=== PATIENT | female | born 1985 | race Caucasian/White ===

== ENCOUNTER 2022-10-26 13:09 | Outpatient (AMB) | payer OTHER, SELFPAY ==
--- NOTE | 2022-10-26 13:12 | A.OFFVIS_ITS ---
Intake VS Expanded 10/26/22 13:19 Height 5 ft 4 in Weight 121 lb 9.6 oz BMI 20.9 BP 120/73 Blood Pressure Location Rt brachial Blood Pressure Position Sitting Pulse 91 Pulse Source Pulse Oximeter Temp 98.8 F Temperature Source Temporal Artery Scan Pulse Oximetry 98 Oxygen Delivery Method Room Air Body Fat 33.0 Body Fat Percentage 27.2 Free Fat Mass 88.4 Muscle Mass 84.0 Visceral Mass 3.0 Water Mass 63.4 BMR 1,218 Intake Visit Reasons: (OV) Panniculectomy BMI 21.6 Allergies codeine [CODEINE] Allergy (Unknown, Verified 10/26/22 13:15) RASH hydrocodone [From VICODIN] Allergy (Unknown, Verified 10/26/22 13:15) RASH lithium [LITHIUM] Allergy (Unknown, Verified 10/26/22 13:15) UNK Penicillins [PENICILLINS] Allergy (Unknown, Verified 10/26/22 13:15) RASH Sulfa (Sulfonamide Antibiotics) [SULFA (SULFONAMIDE ANTIBIOTICS)] Allergy (Unknown, Verified 10/26/22 13:15) RASH HPI HPI Comments History of Present Illness Details 36 year old female presents to the office for evaluation for possible panniculectomy due to excess skin. She underwent gastric surgery, laparoscopic sleeve gastrectomy, on []. Initial weight was [] pounds. She has lost a total of [] pounds and as a result has excess skin. She has applied [], several times over the last 3 months with improvement and recurrence of her dermatitis. The excess skin has interfered with her ADL activities and has caused a functional deficit due to severe physical deformity. She reports[]. The surgery is expected to restore and improve the functional deficit. [facility] Surgical History (Updated 10/26/22 @ 13:19 by Ana Maravilla CMA) History of removal of laparoscopic gastric banding device Hx of hysterectomy Hx of laparoscopic gastric banding Hx of laparoscopic partial gastrectomy Social History (Updated 10/26/22 @ 13:19 by Ana Maravilla CMA) Alcohol intake: current Alcohol intake frequency: holidays/special occasions only Cigarettes Per Day: 7 Coding Diagnoses
[2022-10-26 13:19] VITALS: BP 120/73; PULSE 91; TEMP 37.1; O2SAT 98; BMI 20.9
[2022-10-26 13:40] VITALS: BMI 20.9
--- NOTE | 2022-10-26 13:40 | A.OFFVIS_ITS ---
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 Wood Fuel Pelletizer: Wood Fuel Pelletizer Present Allergies codeine [CODEINE] Allergy (Unknown, Verified 10/26/22 13:15) RASH hydrocodone [From VICODIN] Allergy (Unknown, Verified 10/26/22 13:15) RASH lithium [LITHIUM] Allergy (Unknown, Verified 10/26/22 13:15) UNK Penicillins [PENICILLINS] Allergy (Unknown, Verified 10/26/22 13:15) RASH Sulfa (Sulfonamide Antibiotics) [SULFA (SULFONAMIDE ANTIBIOTICS)] Allergy (Unknown, Verified 10/26/22 13:15) RASH Medication List - Last Reconciled 10/26/22 by EDEN Kenyon [klonopin PO TID] HPI HPI Comments History of Present Illness Details 36 year old female, presenting for possible panniculectomy. She states that she had a lap band placed by Dr. Curry in 2014. At that time her weight was 330 lb. She had the lap band removed in 2018 and subsequent laparoscopic sleeve gastrectomy in 2019. She states that her weight in 2019 prior to the sleeve procedure was 345 lb. She states that she has maintained her current weight of 121 lb over the last year. She states that she has excess skin under her pannus. She additionally notes odor coming from the umbilicus for which she has been treated intermittently by her primary care physician with nystatin. She denies any confluent rashes to her skin underneath the pannus and wishes to just have the excess skin removed. She states that she has intermittently developed sores which she describes as a boil, underneath the pannus and this has been treated intermittently with antibiotics or nothing at all. She reports a lesion to her medial right leg currently that is very similar to the lesions that she would get under her pannus. She has been applying powders and taking several showers to keep the skin clean and dry under her pannus. [facility] Surgical History History of removal of laparoscopic gastric banding device Hx of hysterectomy Hx of laparoscopic gastric banding Hx of laparoscopic partial gastrectomy Social History Alcohol intake: current Alcohol intake frequency: holidays/special occasions only Cigarettes Per Day: 7 Physical Exam Vital Signs: Last Vital Signs Temp 98.8 F 10/26/22 13:19 Pulse 91 10/26/22 13:19 BP 120/73 10/26/22 13:19 Pulse Ox 98 10/26/22 13:19 Oxygen Delivery Method Room Air 10/26/22 13:19 BMI result Body Mass Index 20.9 Const General: anxious and other (Very jittery) Resp Effort & Inspection: normal respiratory effort GI Inspection: Yes normal to inspection and Yes Abdominal panniculus present Skin Other: 0.5 cm healing circular infection to the medial right leg. Grade 2 pannus without any rash to the skin. Assessment & Plan Assessment & Plan (1) Excess skin: Code(s): L98.7 - Excessive and redundant skin and subcutaneous tissue Plan: Discussed the importance of maintaining a healthy diet. She states that she eats 5-6 small meals per day including protein and fresh vegetables. She does smoke 6-7 cigarettes per day and was encouraged to quit. She will continue with as needed nystatin to her umbilicus. She will contact the office with any rashes that she develops underneath the pannus. We discussed the criteria for medical necessity for panniculectomy including recurrent dermatitis, impact to activities of daily living, pain. She has been congratulated on her greater than 200 lb weight loss, per her report, and she will follow-up in the office as needed. Coding Level of Care Code New Pt Level 3 (16516) Diagnoses Excess skin L98.7
== END 2022-10-26 13:48 | disposition home or self-care (01) ==
PROVIDERS: PCP Family Medicine; Visit Provider Physician Assistant Surgical
DX: L98.7 Excessive and redundant skin and subcutaneous tissue (principal)
CPT/HCPCS: 99203

== ENCOUNTER → 2022-10-26 13:09 | Outpatient (BNVA) | payer MEDICAID, SELFPAY | PROVIDERS: PCP Family Medicine; Visit Provider Physician Assistant Surgical ==

== ENCOUNTER 2022-12-06 15:55 | Emergency (ER) | payer OTHER, SELFPAY ==
[2022-12-06 16:11] VITALS: BP 119/57; BP 120/71; PULSE 102; PULSE 98; RESP 18; TEMP 37.2; O2SAT 96; O2SAT 97; BMI 21.8
--- NOTE | 2022-12-06 16:56 | ED.GENADULT ---
HPI - General Adult General Chief complaint: Psychiatric Symptoms Stated complaint: BEHAVIORAL ISSUES SINCE MED CHANGE Time Seen by Provider: 12/06/22 16:45 Source: patient Mode of arrival: ambulatory Limitations: other (poor historian ) History of Present Illness HPI narrative: 37-year-old female history of OCD, depression, anxiety, opiate use disorder presents requesting med adjustment she does not think her Suboxone dose is normal. EMS reports that her family reporting behavioral outburst and problems, patient is standing in from the faucet with running water for hours and crawling on the floor bizarre presentations. Patient denies SI and HI. No hallucinations. No medical complaints. Reports last used heroin a week ago and last drink alcohol week ago. Related Data Home Medications Medication Instructions Recorded Confirmed klonopin PO TID 10/26/22 10/26/22 Allergies Allergy/AdvReac Type Severity Reaction Status Date / Time codeine [CODEINE] Allergy Unknown RASH Verified 10/26/22 13:15 hydrocodone [From VICODIN] Allergy Unknown RASH Verified 10/26/22 13:15 lithium [LITHIUM] Allergy Unknown UNK Verified 10/26/22 13:15 Penicillins [PENICILLINS] Allergy Unknown RASH Verified 10/26/22 13:15 Sulfa (Sulfonamide Allergy Unknown RASH Verified 10/26/22 13:15 Antibiotics) [SULFA (SULFONAMIDE ANTIBIOTICS)] Review of Systems Review of Systems: Constitutional : No Weight loss, No Fever, No Chills, No Fatigue, No Malaise ENT/Mouth : No sore throat, No Rhinorrhea Eyes: No Eye Pain, No Swelling, No Redness Cardiovascular : No Chest Pain, No SOB, No Dyspnea on Exertion, No Orthopnea, No Edema, No Palpitations Respiratory : No Cough, No Sputum, No Wheezing Gastrointestinal : No Nausea, No Vomiting, No Diarrhea, No Constipation, No abdominal Pain, No Hematochezia, No Melena Genitourinary : No Dysuria, No Urinary Frequency, No Hematuria, Musculoskeletal : No joint pain, No Myalgias, No Joint Swelling Skin : No Skin Lesions, No rash Neuro : No Weakness, No Numbness, No Dizziness, No Headache Psych : No Anxiety/Panic, No Depression All other systems reviewed and are negative Yes all other systems are reviewed and are negative PMFSH Past Medical History Surgical History History of removal of laparoscopic gastric banding device Hx of hysterectomy Hx of laparoscopic gastric banding Hx of laparoscopic partial gastrectomy Social History Social History Alcohol intake: current Alcohol intake frequency: holidays/special occasions only Cigarettes Per Day: 7 Smoked in Last 30 Days: Yes Use of substances other than those prescribed or required for medical reasons: Yes Advance Directives: No Advance Directives Information Provided: Yes Physical Exam ED Vital Signs: Vital Signs - 24 hr 12/06/22 16:11 Temperature 98.9 F Pulse Rate 98 Respiratory Rate 18 Blood Pressure 119/57 L Pulse Oximetry 96 Oxygen Delivery Method Room Air BMI result Body Mass Index 21.8 Vital signs stable Appearance: Alert.? Oriented X3.? No acute distress.? Head: Normocephalic, atraumatic, no step-offs or deformities Eyes: Pupils equal, round and reactive to light.? Neck: Normal inspection.? Neck supple.? CVS: Normal heart rate and rhythm.? Pulses normal.? Respiratory: No respiratory distress.? Breath sounds normal.? Abdomen: Soft and nontender.? Skin: Skin warm and dry.? Normal skin color.? Normal skin turgor.? Extremities: No lower extremity edema.? No calf ttp. 5/5 strength to bilateral upper and lower extremities Neuro: Oriented X 3.? No motor deficit.? No sensory deficit. CN 2-12 intact Course Reevaluation(s) Reevaluation #1: CBC with leukocytosis . Patient without medical complaints this could be reactive however urine pending. Chemistry with no acute findings requiring intervention. UA without infection will not treat for UTI. No URI symptoms no indication for chest x-ray. Urine toxicology positive for benzodiazepines, cocaine, salicylates acetaminophen and ethanol negative. At this time patient will be placed in observation to allow more time to be evaluated by behavioral health team. At time observation was started patient comp operative no acute distress will continue to monitor Time: 19:12 Reevaluation #2: Patient would like to go home. Her urine is positive for cocaine and benzodiazepines. She has a prescription for Klonopin. She is not suicidal or homicidal. She has been calm, cooperative and appropriate while here. She would like to go home and follow-up with her Suboxone Clinic tomorrow. At this time she is stable for discharge home with outpatient follow-up. Return precautions were discussed. Time: 21:33 Medical Decision Making Medical Decision Making [facility] Narrative: 37-year-old female presents requesting med adjustment on psych meds and Suboxone. Physical exam benign. Likely polysubstance abuse. No SI or HI. Unlikely metabolic derangements. Plan medical clearance evaluation by behavioral health team Differential Diagnosis Differential Diagnoses: The differential diagnosis associated with the presentation includes Likely polysubstance abuse. No SI or HI. Unlikely metabolic derangements. Admission/Observation Consideration of admission/observation: Escalation of care including admission/observation considered Unlikely Lab Data [facility] Lab Attestation statement: I reviewed the patient's lab results. 12/06/22 17:53 12/06/22 17:53 Labs: Lab Results 12/06/22 12/06/22 Range/Units 17:53 17:54 WBC 14.6 H (4.8-10.8) X10*3/uL RBC 4.13 L (4.20-5.50) X10*6/uL Hgb 10.9 L (12.0-16.0) g/dl Hct 33.1 L (37.0-47.0) % MCV 80.1 (80.0-98.0) fL MCH 26.4 L (27.0-33.0) pg MCHC 32.9 (31.0-35.0) g/dl RDW 17.0 H (11.0-16.0) % Plt Count 256 (160-400) X10*3/uL MPV 9.4 (9.4-12.3) fL Immature Gran % (Auto) 0.5 H (0.0-0.4) % Neut % (Auto) 90.2 H (45-73) % Lymph % (Auto) 4.9 L (20-40) % [place] % (Auto) 4.1 (2-11) % Eos % (Auto) 0.0 (0-4) % Baso % (Auto) 0.3 (0-2) % Lymph # (Auto) 0.7 L (1.2-4.9) X10*3/uL [place] # (Auto) 0.6 (0.1-1.2) X10*3/uL Eos # (Auto) 0.0 (0.0-0.4) X10*3/uL Baso # (Auto) 0.0 (0.0-0.2) X10*3/uL Abs Immat Gran (auto) 0.07 H (0.00-0.03) X10*3/uL Absolute Neuts (auto) 13.1 H (2.0-8.3) x10*3/uL Absolute Nucleated RBC 0.000 (0.0-0.012) X10*3/uL Nucleated RBC % (auto) 0.0 (0.0-0.2) /100WBC Smear Tech's Comments VERIFIED Sodium 134 L (135-145) mmol/L Potassium 3.5 (3.3-5.1) mmol/L Chloride 107 (96-108) mmol/L Carbon Dioxide 20 L (22-29) mmol/L Anion Gap 11 L (12-20) BUN 13 (9-16) mg/dL Creatinine 0.73 (0.5-1.4) mg/dL Estim Creat Clear Calc 92.0 Estimated GFR > 60 Random Glucose 84 (60-115) mg/dL Calcium 8.7 (8.4-10.2) mg/dL Magnesium 2.0 (1.6-2.6) mg/dL Total Bilirubin 0.3 (0.0-1.0) mg/dL AST 24 (5-31) U/L ALT 17 (0-31) U/L Alkaline Phosphatase 146 H (39-117) U/L Total Protein 7.4 (6.5-8.0) g/dL Albumin 3.3 L (3.5-5.0) g/dL Urine Color Dark Yellow Urine Appearance Clear Urine pH 6.5 (5.0-9.0) Ur Specific [place] >= 1.030 H (1.005-1.025) Urine Protein 30 (1+) H (Neg-Trace) mg/dL Urine Glucose (UA) Negative (Negative) mg/dL Urine Ketones 15 (Negative) mg/dL Urine Blood Negative (Negative) Urine Nitrite Negative (Negative) Ur Leukocyte Esterase Trace H (Negative) Urine RBC 0-2 (0-2) /HPF Urine WBC 0-5 (0-5) /HPF Ur Squamous Epith Cells 6-10 (0-2) /HPF Urine Bacteria Trace (None Seen) Hyaline Casts 0-2 (0-2) /LPF Salicylates < 5.0 L (15-30) mg/dL Urine Opiates Screen Not Detected (Not Detect) Urine Fentanyl Screen Not Detected (Not Detect) Acetaminophen < 17 (<30) mcg/mL Ur Barbiturates Screen Not Detected (Not Detect) Ur Phencyclidine Scrn Not Detected (Not Detect) Ur Amphetamines Screen Not Detected (Not Detect) U Benzodiazepines Scrn POSITIVE H (Not Detect) Urine Cocaine Screen POSITIVE H (Not Detect) U Marijuana (THC) Screen Not Detected (Not Detect) Ethyl Alcohol < 10 mg/dL COVID-19 (VAHID) Negative (Negative) COVID-19 Clin Com See Note Social Determinants Patient?s care significantly limited by Social Determinants of Health including: Other Social Determinant of Health Critical Care Time Critical Care Time Critical Care Time: No Discharge Plan Discharge Clinical Impression: Polysubstance abuse Patient Disposition: Home, Self-Care Instructions: Polysubstance Abuse (ED) Additional Instructions: Do not use illicit drugs. Follow-up with your Suboxone Clinic tomorrow. Recommend following up with a therapist and psychiatrist for further evaluation and treatment. Follow-up with primary care doctor. If you develop new or worsening symptoms call 911 or come back to the ER for further evaluation. Prescriptions: No Action klonopin 1 mg PO TID Interventions: [place]-Suicide Risk Severity Scale Last Done: 12/06/22 16:17
--- NOTE | 2022-12-06 17:57 | PC.NURSE ---
pt aox4, with no complaints. was sent in at request of father who thinks that since starting suboxone at the beginning of nov, that she has been acting differently and that there is a behavioral concern. pt denies this and reports that they keep to themselves pt aslo has appt tomorrow with Doc who prescribes suboxone, further wondering why she is here now. behavior non-concerning at this time, calm and cooperative. pt denies SI/HI. not changed over to hosp scrubs at this time bc no SI. labs done, will ctm
[2022-12-06 18:08] LABS: Appearance Urine Clear; Color Urine Dark Yellow; Glucose Urine UA Negative (Negative); Leukocyte Esterase Urine Trace (Negative); Nitrite Urine Negative (Negative); PH 6.5 (5.0-9.0); Specific Gravity - Urine >= 1.030 (1.005-1.025); UMIC TRIGGER UACC YES; Urine Blood Negative (Negative); Urine Ketones 15 mg/dL (Negative); Urine Protein 30 (1+) mg/dL (Neg-Trace)
[2022-12-06 18:13] LABS: Amphetamine Screen Urine Not Detected (Not Detect); Barbiturates, Urine Not Detected (Not Detect); Benzodiazepines Screen Urine POSITIVE (Not Detect); Cannabinoid Screen Urine Not Detected (Not Detect); Cocaine Screen Urine POSITIVE (Not Detect); Fentanyl, urine Not Detected (Not Detect); Opiate Screen Urine Not Detected (Not Detect); Phencyclidine Screen Urine Not Detected (Not Detect)
[2022-12-06 18:15] LABS: COVID-19 Test Negative (Negative); IDNOW Serial# BCCEAD1C
[2022-12-06 18:23] LABS: Basophils Percent Auto 0.3 % (0-2); Hematocrit 33.1 % (37.0-47.0); Hemoglobin 10.9 g/dl (12.0-16.0); Imm Gran Abs Auto 0.07 X10*3/uL (0.00-0.03); Imm Gran Pct Auto 0.5 % (0.0-0.4); Lymphocytes Absolute Auto 0.7 X10*3/uL (1.2-4.9); Lymphocytes Percent Auto 4.9 % (20-40); MANUAL DIFF FLAG SCAN; Mean Corpuscular HGB Conc 32.9 g/dl (31.0-35.0); Mean Corpuscular Hemoglobin 26.4 pg (27.0-33.0); Mean Corpuscular Volume 80.1 fL (80.0-98.0); Mean Platelet Volume 9.4 fL (9.4-12.3); Monocytes Absolute Auto 0.6 X10*3/uL (0.1-1.2); Monocytes Percent Auto 4.1 % (2-11); Neutrophils Absolute Auto 13.1 x10*3/uL (2.0-8.3); Neutrophils Percent Auto 90.2 % (45-73); Platelet Count 256 X10*3/uL (160-400); Red Blood Count 4.13 X10*6/uL (4.20-5.50); SCAN SMEAR FLAG 1; White Blood Count 14.6 X10*3/uL (4.8-10.8)
[2022-12-06 18:30] LABS: Acetaminophen LAB < 17 mcg/mL (<30); Salicylate < 5.0 mg/dL (15-30)
[2022-12-06 18:33] LABS: Alanine Aminotransferase 17 U/L (0-31); Albumin Level 3.3 g/dL (3.5-5.0); Alkaline Phosphatase 146 U/L (39-117); Anion Gap 11 (12-20); Aspartate Amino Transferase 24 U/L (5-31); Blood Urea Nitrogen 13 mg/dL (9-16); Calcium 8.7 mg/dL (8.4-10.2); Carbon Dioxide 20 mmol/L (22-29); Chloride 107 mmol/L (96-108); Estimated Glomerular Filt Rate > 60; Ethanol < 10 mg/dL; Glucose Random 84 mg/dL (60-115); Potassium 3.5 mmol/L (3.3-5.1); Sodium 134 mmol/L (135-145); Total Protein 7.4 g/dL (6.5-8.0)
[2022-12-06 18:34] LABS: Bacteria Urine Trace (None Seen); Hyaline Casts Urine 0-2 /LPF (0-2); RBC Urine 0-2 /HPF (0-2); WBC Urine 0-5 /HPF (0-5)
[2022-12-06 18:43] LABS: Bilirubin Total 0.3 mg/dL (0.0-1.0)
[2022-12-06 19:51] LABS: SLIDE REVIEW VERIFIED
--- NOTE | 2022-12-06 20:18 | PC.NURSE ---
discussed pt case with PA. continues to deny SI/HI. reports that they feel safe at home and that they do not want to stay to speak with CARE team.
== END 2022-12-06 21:37 | disposition home or self-care (01) ==
PROVIDERS: Physician Assistant; Emergency Provider Emergency Medicine Emergency Medical Services
DX: F14.19 Cocaine abuse with unspecified cocaine-induced disorder (principal); F11.10 Opioid abuse, uncomplicated; F33.1 Major depressive disorder, recurrent, moderate; Z20.822 Contact with and (suspected) exposure to COVID-19; Z20.828 Contact with and (suspected) exposure to other viral communicable diseases; Z79.899 Other long term (current) drug therapy
CPT/HCPCS: 80053; 80143; 80179; 80307; 81001; 83735; 85025; 87635; 99284

== ENCOUNTER 2024-01-24 08:45 | Outpatient (RCR) | payer OTHER, SELFPAY ==
[2024-01-24 09:50] VITALS: BMI 16.9
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
--- NOTE | 2024-01-24 21:14 | P.HPPSP_ITS ---
HPI Date of Service: 01/24/24 Chief Complaint: anxiety,MDD,bipolar,TIAGO Sources of Information: patient interviewed, chart reviewed and crisis/core team assessment reviewed [facility] Medical History (Updated 01/25/24 @ 09:29 by Micaela Perkins MD) History of cellulitis Bruises easily Gastric stenosis Dysphagia GERD (gastroesophageal reflux disease) Asthma Fibromyalgia Dry eyes Insomnia Systemic lupus Seizure disorder Migraines Surgical History (Updated 01/24/24 @ 09:47 by Shae Garcia RN) H/O gastric sleeve Hx of laparoscopic partial gastrectomy Hx of hysterectomy History of removal of laparoscopic gastric banding device Hx of laparoscopic gastric banding Diagnostics Vital Signs (24Hr): BMI result Body Mass Index 16.9 Meds/Allergies Allergies Allergies Allergy/AdvReac Type Severity Reaction Status Date / Time codeine [CODEINE] Allergy Unknown RASH Verified 10/26/22 13:15 hydrocodone [From VICODIN] Allergy Unknown RASH Verified 10/26/22 13:15 lithium [LITHIUM] Allergy Unknown UNK Verified 10/26/22 13:15 Penicillins [PENICILLINS] Allergy Unknown RASH Verified 10/26/22 13:15 Sulfa (Sulfonamide Allergy Unknown RASH Verified 10/26/22 13:15 Antibiotics) [SULFA (SULFONAMIDE ANTIBIOTICS)] naloxone Allergy Vomiting Verified 01/24/24 09:49 Assessment & Plan Assessment & Plan (1) Polysubstance (including opioids) dependence with physiological dependence: Status: Acute Code(s): F19.20 - Other psychoactive substance dependence, uncomplicated (2) Post traumatic stress disorder (PTSD): Status: Acute Code(s): F43.10 - Post-traumatic stress disorder, unspecified (3) Eating disorder, unspecified: Status: Acute Code(s): F50.9 - Eating disorder, unspecified (4) Other specified episodic mood disorder: Status: Acute Code(s): F39 - Unspecified mood [affective] disorder Patient educated on: diagnosis, medication risk/benefits and substance abuse Informed Consent: understands Reason for continued partial hosp. stay Substantial Risk for: inability to function, rapid decompensation and med/psych decompensation Certification I certify that partial hospital treatment is medically necessary due to the symptoms and problems resulting from the patient's mental illness and the failure to treat the patient at the partial hospital level of care would likely result in the patient requiring inpatient psychiatric care which could not be prevented at a less intensive level of care. Time Spent With Patient Time: Total time managing care of this patient today __60__ minutes.
[2024-01-25 07:48] LABS: Amphetamine Screen Urine Not Detected (Not Detect); Benzodiazepines Screen Urine POSITIVE (Not Detect)
[2024-01-25 07:57] LABS: Cocaine Screen Urine POSITIVE (Not Detect); Fentanyl, urine POSITIVE (Not Detect); Methadone Screen, Urine Not Detected (Not Detect); Opiate Screen Urine Not Detected (Not Detect); Oxycodone Screen Urine Not Detected (Not Detect); Phencyclidine Screen Urine POSITIVE (Not Detect)
[2024-01-25 09:30] LABS: Barbiturates, Urine POSITIVE (Not Detect)
[2024-01-25 09:31] LABS: Buprenorphine Scr POSITIVE (Not Detect); Cannabinoid Screen Urine NOT DETECTED (Not Detect)
== END 2024-01-28 07:08 | disposition home or self-care (01) ==
LOC: HO.PHPA 08:45
PROVIDERS: Visit Provider Psychiatry & Neurology Psychiatry
DX: F43.10 Post-traumatic stress disorder, unspecified (principal); F19.20 Other psychoactive substance dependence, uncomplicated; F50.9 Eating disorder, unspecified; F39 Unspecified mood [affective] disorder
CPT/HCPCS: 80307; 90791; 90853

== ENCOUNTER → 2024-01-24 08:45 | Outpatient (BNV) | payer OTHER, SELFPAY | PROVIDERS: Visit Provider Psychiatry & Neurology Psychiatry | DX: F19.20 Other psychoactive substance dependence, uncomplicated (principal); F43.10 Post-traumatic stress disorder, unspecified; F50.9 Eating disorder, unspecified; F39 Unspecified mood [affective] disorder | CPT/HCPCS: 99499 ==